=== PATIENT | female | born 1985 | race Caucasian/White ===

== ENCOUNTER 2017-09-11 03:42 | Emergency (ER) | payer OTHER ==
[2017-09-11] MEDS ORDERED: Morphine 10 MG/ML VIAL ONE (04:10)
[2017-09-11] MEDS ORDERED: Ondansetron HCl/PF 4 MG/2 ML Vial ONE (04:10)
[2017-09-11 04:24] LABS: #Basophils 0.1 thou/uL (0.0-0.2); #Eosinphils 0.3 thou/uL (0.0-0.7); #Lymphocytes 2.9 thou/uL (1.20-3.40); #Monocytes 0.7 thou/uL (0.11-0.59); #Neutrophils 7.3 thou/uL (1.40-6.50); %Basophils 0.9 % (0.0-1.0); %Eosinophils 2.4 % (0.0-10.0); %Lymphocytes 26.1 % (21.0-51.0); %Monocytes 5.8 % (0.0-10.0); %Neutrophils 64.8 % (42.0-75.0); Hemoglobin 12.4 g/dL (12.0-16.0); Mean Corpuscular HGB CONC 34.9 g/dL (32.0-36.0); Mean Corpuscular Hemoglobin 27.7 pg (27.0-31.0); Mean Corpuscular Volume 79.4 fl (81.0-99.0); Mean Platelet Volume 7.2 fL (7.4-10.4); Platelet Count 252 thou/uL (130-400); RBC Distribution Width 11.1 % (11.5-14.5); Red Blood Cell (RBC) Count 4.46 mill/uL (4.20-5.40); White Blood Cell (WBC) Count 11.3 thou/uL (4.8-10.8)
[2017-09-11 04:44] LABS: ALT (SGPT) 19 U/L (8-55); AST (SGOT) 22 U/L (5-34); Albumin 3.7 g/dL (3.5-5.0); Alkaline Phosphatase 94 U/L (40-150); Anion Gap 16 mmol/L (10-20); BUN (Urea Nitrogen) 7 mg/dL (7.0-18.7); Bilirubin, Total 0.7 mg/dL (0.2-1.2); Calc. Creatinine Clearance 0 mL/min (70-130); Calcium 9.3 mg/dL (7.8-10.44); Carbon Dioxide 20 mmol/L (22-29); Chloride 106 mmol/L (98-107); Estimated GFR-MDRD 83; Globulin 2.9 g/dL (2.4-3.5); Lipase 18 U/L (8-78); Potassium 3.1 mmol/L (3.5-5.1); Protein, Total 6.6 g/dL (6.0-8.3); Sodium 139 mmol/L (136-145)
[2017-09-11 04:46] LABS: Glucose 103 mg/dL (70-105)
[2017-09-11 04:51] LABS: Bilirubin Negative (Negative); Blood, Urine Trace (Negative); Clarity Clear (Clear); Glucose, Urine (Dipstick) Negative (Negative); Leukocyte Small (Negative); Nitrite Negative (Negative); Protein, Urine (Dipstick) 30 mg/dL (Neg-Trace); Urobilinogen 0.2 mg/dL (0.2-1.0)
[2017-09-11 05:01] LABS: Specific Gravity, Urine 1.022 (1.002-1.036)
[2017-09-11 05:02] LABS: Bacteria/HPF 1+ HPF (None Seen); Pregnancy Test - Urine (BHCG) Negative (Negative); Pregu Control Background? CLEAR/WHITE (CLR/WHITE); Pregu Control Bar Appear? YES (CONTROL BAR); Specific Gravity 1.022 (1.002-1.036)
== END 2017-09-11 05:54 | disposition short-term general hospital (02) ==
LOC: MADERS 03:42
DX: R10.11 Right upper quadrant pain (principal); D72.829 Elevated white blood cell count, unspecified; N39.0 Urinary tract infection, site not specified; E66.9 Obesity, unspecified; K29.70 Gastritis, unspecified, without bleeding
CPT/HCPCS: 36415; 80053; 81003; 81015; 81025; 83690; 85025; 96374; 96375; 96376; J2270; J2405

== ENCOUNTER 2018-02-23 15:29 | Emergency (ER) | payer OTHER ==
[2018-02-23] MEDS ORDERED: Dexamethasone 10 MG/ML VIAL ONE (16:27)
== END 2018-02-23 16:35 | disposition home or self-care (01) ==
LOC: MADERS 15:29
DX: J06.9 Acute upper respiratory infection, unspecified (principal); E66.9 Obesity, unspecified
CPT/HCPCS: 96372; J1100

== ENCOUNTER 2018-12-01 13:30 | Emergency (ER) | payer OTHER ==
[2018-12-01] MEDS ORDERED: Ketorolac Tromethamine 60 MG/2 ML VIAL ONE (14:00)
[2018-12-01 14:42] LABS: Bilirubin Negative (Negative); Blood, Urine Negative (Negative); Clarity Clear (Clear); Glucose, Urine (Dipstick) Negative (Negative); Leukocyte Negative (Negative); Nitrite Negative (Negative); Protein, Urine (Dipstick) Negative (Neg-Trace); Urobilinogen 0.2 mg/dL (Less than 2)
== END 2018-12-01 15:00 | disposition home or self-care (01) ==
LOC: MADERS 13:30
DX: M54.5 Low back pain (principal); E66.9 Obesity, unspecified
CPT/HCPCS: 81003; 96372; 99284; J1885

== ENCOUNTER 2019-03-11 16:47 | Emergency (ER) | payer OTHER ==
--- NOTE | 2019-03-11 18:40 | RAD ---
LUMBAR SPINE TWO VIEWS: 03/11/19 HISTORY: Low back pain. FINDINGS/IMPRESSION: There are mild degenerative changes. No fracture, subluxation, or bony destruction seen. POS: [facility]
[2019-03-11] MEDS ORDERED: Ondansetron ODT 4 MG TAB ONE (19:04)
[2019-03-11] MEDS ORDERED: Ketorolac Tromethamine 30 MG/ML VIAL ONE (19:04)
== END 2019-03-11 19:27 | disposition home or self-care (01) ==
LOC: MADERS 16:47
DX: M54.42 Lumbago with sciatica, left side (principal); M62.830 Muscle spasm of back; E66.9 Obesity, unspecified
CPT/HCPCS: 72100; 96372; J1885; Q0162

== ENCOUNTER 2019-04-11 20:09 | Emergency (ER) | payer OTHER ==
[2019-04-11] MEDS ORDERED: Ondansetron ODT 4 MG TAB ONE (20:49)
[2019-04-11] MEDS ORDERED: Ketorolac Tromethamine 30 MG/ML VIAL ONE ×2 (20:49→20:53)
== END 2019-04-11 21:40 | disposition home or self-care (01) ==
LOC: MADERS 20:09
DX: M54.42 Lumbago with sciatica, left side (principal); M54.41 Lumbago with sciatica, right side; H91.90 Unspecified hearing loss, unspecified ear; E66.9 Obesity, unspecified
CPT/HCPCS: 96372; 99283; J1040; J1885; Q0162

== ENCOUNTER 2019-06-02 19:05 | Emergency (ER) | payer OTHER, SELFPAY ==
[2019-06-02 20:04] LABS: Bilirubin Negative (Negative); Blood, Urine Large (Negative); Clarity Slightly Cloudy (Clear); Glucose, Urine (Dipstick) Negative (Negative); Leukocyte Moderate (Negative); Nitrite Negative (Negative); Protein, Urine (Dipstick) 100 mg/dL (Neg-Trace); Urobilinogen 0.2 mg/dL (Less than 2)
[2019-06-02 20:06] LABS: Bacteria/HPF 2+ HPF (None Seen); Mucous/LPF 1+ LPF (<2+); Squamous Epithelial 0-3 HPF (0-3); WBC/HPF 21-50 HPF (0-3)
[2019-06-02 20:07] LABS: RBC/HPF Greater than 50 HPF (0-3)
[2019-06-02] MEDS ORDERED: cefTRIAXone\\ROCEPHIN 1 GM VIAL ONE (20:34)
[2019-06-02] MEDS ORDERED: Lidocaine 1% 20 ML MDV ONE (20:34)
[2019-06-02] MEDS ORDERED: Phenazopyridine HCl 97.5 MG TABLET ONE (20:34)
== END 2019-06-02 21:00 | disposition home or self-care (01) ==
LOC: MADERS 19:05
DX: N39.0 Urinary tract infection, site not specified (principal); E66.9 Obesity, unspecified
CPT/HCPCS: 81003; 81015; 96372; 99283; J0696; J2001